=== PATIENT | female | born 1960 | race Caucasian/White ===

== ENCOUNTER → 2020-02-15 | Outpatient (CLI) | payer MEDICARE | END | disposition home or self-care (01) | LOC: CFH 14:13 | PROVIDERS: ATTEND Physician Assistant Surgical | DX: M47.12 Other spondylosis with myelopathy, cervical region (principal); M25.78 Osteophyte, vertebrae; M48.02 Spinal stenosis, cervical region | CPT/HCPCS: 72125 ==

== ENCOUNTER → 2020-02-23 | Outpatient (CLI) | payer MEDICARE ==
[~2020-02-23] MED LIST: ALBU8.5H8 INH; BACL-19 PO; BUPR300T94 PO; FLUO20CA23 PO; FLUT1DIS5 IH; GABA800T5 PO; LETR2.5T3 PO; TIZA2TAB4 PO
[2020-02-23 12:14] LABS: BASOPHILS % (AUTO) 1 % (0-1); EOSINOPHILS % (AUTO) 2 % (1-7); LYMPHOCYTES % (AUTO) 27 % (22-44); MEAN CORPUSCULAR HEMOGLOBIN 29.5 pg (27.0-34.8); MEAN CORPUSCULAR HGB CONC 33.1 g/dL (32.4-35.8); MEAN PLATELET VOLUME 8.2 fL (7.4-10.4); MONOCYTES % (AUTO) 9 % (2-9); NEUTROPHILS % (AUTO) 61 % (42-75); PLATELET COUNT 274 x10^3/uL (130-400); RED BLOOD COUNT 5.01 x10^6/uL (3.82-5.3); RED CELL DISTRIBUTION WIDTH 14.2 % (9.6-15.2)
[2020-02-23 12:20] LABS: MD NO
[2020-02-23 12:26] LABS: INTERNATIONAL NORMALIZED RATIO 0.99 (0.93-1.1); PROTHROMBIN TIME 10.2 Seconds (9.6-11.5)
[2020-02-23 12:30] LABS: ANION GAP 8 mmol/L (5-15); CALCIUM 9.1 mg/dL (8.5-10.1); CHLORIDE 109 mmol/L (98-107); CREATININE 1.04 mg/dL (0.55-1.02)
[2020-02-23 12:43] LABS: MICROSCOPIC INDICATED
== END | disposition home or self-care (01) ==
LOC: STAR 10:55
PROVIDERS: ATTEND Neurological Surgery
DX: Z01.818 Encounter for other preprocedural examination (principal); Z01.812 Encounter for preprocedural laboratory examination; Z01.811 Encounter for preprocedural respiratory examination; Z01.810 Encounter for preprocedural cardiovascular examination; M48.02 Spinal stenosis, cervical region; R79.1 Abnormal coagulation profile; R82.90 Unspecified abnormal findings in urine; R94.31 Abnormal electrocardiogram [ECG] [EKG]; I51.7 Cardiomegaly
CPT/HCPCS: 36415; 71046; 80048; 81001; 85025; 85610; 85730; 87086; 93005

== ENCOUNTER → 2020-02-28 | Outpatient (CLI) | payer MEDICARE | END | disposition home or self-care (01) | LOC: STAR 11:10 | PROVIDERS: ATTEND Anesthesiology | DX: Z01.812 Encounter for preprocedural laboratory examination (principal); Z20.828 Contact with and (suspected) exposure to other viral communicable diseases | CPT/HCPCS: 36415; 87635 ==

== ENCOUNTER 2020-03-03 07:06 | Inpatient (IN) | payer MEDICARE ==
[2020-03-02 13:30] LABS: MICROSCOPIC AUTO
[~2020-03-03] VITALS: Ht 162.6 cm; Wt 97.0 kg
[~2020-03-03 07:06] MED LIST changes: +BACITRACIN 50,000 UNIT ONE; +BUPIVACAINE/PF 0.5% ONE; +EPINEPHRINE 1 MG/ML, 1ML ONE
[2020-03-03] MEDS ORDERED: FENTANYL PF 250 MCG/5ML ONE (07:41)
[2020-03-03] MEDS ORDERED: MIDAZOLAM 1 MG/ML, 2ML ONE (07:41)
[2020-03-03] MEDS ORDERED: PROPOFOL 10 MG/ML, 20ML ONE (07:42)
[2020-03-03] MEDS ORDERED: ONDANSETRON 2MG/ML, 2ML ONE (07:42)
[2020-03-03] MEDS ORDERED: ROCURONIUM 10MG/ML,5ML ONE (07:42)
[2020-03-03] MEDS ORDERED: NEOSTIGMINE 1 MG/ML, 10ML ONE (07:42)
[2020-03-03] MEDS ORDERED: GLYCOPYRROLATE 0.2MG/1ML, 5ML ONE (07:42)
[2020-03-03] MEDS ORDERED: CEFAZOLIN 1,000 MG ONE (07:42)
[2020-03-03] MEDS ORDERED: DEXAMETHASONE 4 MG/ML, 1ML ONE (07:42)
[2020-03-03] MEDS ORDERED: PROPOFOL 100 ML ONE (07:42)
[2020-03-03] MEDS ORDERED: CHLORHEXIDINE 15 ML UDC MM STA (07:51)
[2020-03-03] MEDS ORDERED: CHLORHEXIDINE 15 ML UDC ONE (07:54)
[2020-03-03] MEDS ORDERED: LACTATED RINGERS 1,000 ML IV SCH (08:00)
[2020-03-03] MEDS ORDERED: FENTANYL PF 100 MCG/2ML ONE ×3 (09:27→11:37)
[2020-03-03] MEDS ORDERED: MEPERIDINE/PF 25MG/0.5ML IVPush PRN (09:30)
[2020-03-03] MEDS ORDERED: PROMETHAZINE 25 MG/ML, 1ML IVPush PRN (09:30)
[2020-03-03] MEDS ORDERED: HALOPERIDOL 5 MG/ML IV PRN (09:30)
[2020-03-03] MEDS ORDERED: ACETAMINOPHEN 325 MG TABLET PO PRN (09:30)
[2020-03-03] MEDS ORDERED: hydrALAzine 20 MG/ML, 1ML IV PRN (09:30)
[2020-03-03] MEDS ORDERED: HYDROmorphone 1 MG/ML, 1ML INJ IVPush PRN (09:30)
[2020-03-03] MEDS ORDERED: LABETALOL 5MG/ML, 20ML IV PRN ×2 (09:30→14:30)
[2020-03-03] MEDS ORDERED: morphine SULFATE 10 MG/ML, 1ML IVPush PRN (09:30)
[2020-03-03] MEDS ORDERED: OXYcodone 5 MG/5 ML ORAL.SOL UDC PO PRN (09:30)
[2020-03-03] MEDS: FENTANYL PF 100 MCG/2ML IV PRN ×3 (11:47→12:16)
[2020-03-03] MEDS ORDERED: METHOCARBAMOL 1,000 MG in DEXTROSE 5% 100 ML IV ONE (12:00)
[2020-03-03] MEDS ORDERED: OXYcodone 5 MG/5 ML ORAL.SOL UDC ONE (12:17)
[2020-03-03] MEDS ORDERED: ACETAMINOPHEN 650 MG/20.3 ML UDC ONE (12:17)
[2020-03-03] MEDS ORDERED: PROMETHAZINE 25 MG/ML, 1ML IM PRN (14:30)
[2020-03-03] MEDS ORDERED: DIPHENHYDRAMINE 25 MG CAPSULE PO PRN (14:30)
[2020-03-03] MEDS ORDERED: MAGNESIUM HYDROXIDE 8%, 30ML UDC PO PRN (14:30)
[2020-03-03] MEDS ORDERED: HYDROmorphone 2 MG/ML, 1ML IV PRN (14:30)
[2020-03-03] MEDS ORDERED: ONDANSETRON 2MG/ML, 2ML IV PRN (14:30)
[2020-03-03] MEDS ORDERED: BISACODYL 10 MG SUPP PR PRN (14:30)
[2020-03-03] MEDS ORDERED: PHARMACY MAY ADJ FOR RENAL FX MC PRN (15:00)
[2020-03-03] MEDS ORDERED: ALBUTEROL SULFATE 200 PUFFS/8.5 GR INH INH PRN (15:00)
[2020-03-03] MEDS ORDERED: HYDROcodone/APAP 10/325 MG TABLET PO PRN (15:00)
[2020-03-03] MEDS: OXYcodone IR 5MG TABLET PO PRN ×3 (16:14→23:16)
[2020-03-03] MEDS: GABAPENTIN 400 MG CAPSULE PO SCH ×2 (16:30→20:23)
[2020-03-03] MEDS: D5%-0.9% NACL+KCL 20MEQ 1,000 ML IV SCH (16:30)
[2020-03-03] MEDS: DEXAMETHASONE 4 MG/ML, 1ML IV SCH ×2 (16:31→23:12)
[2020-03-03] MEDS: CEFAZOLIN PMX 1GM/50ML 50 ML IVPB SCH (19:19)
[2020-03-03] MEDS: BACLOFEN 10 MG TABLET PO SCH (20:22)
[2020-03-03 20:38] VITALS: BP 124/75
[2020-03-04 01:13] VITALS: BP 119/74
[2020-03-04] MEDS: CEFAZOLIN PMX 1GM/50ML 50 ML IVPB SCH (02:49)
[2020-03-04] MEDS: OXYcodone IR 5MG TABLET PO PRN ×5 (02:54→21:13)
[2020-03-04] MEDS: D5%-0.9% NACL+KCL 20MEQ 1,000 ML IV SCH ×3 (04:51→15:37)
[2020-03-04] MEDS: DEXAMETHASONE 4 MG/ML, 1ML IV SCH (04:51)
[2020-03-04 05:35] VITALS: BP 101/61
[2020-03-04 06:34] VITALS: BP 117/69
[2020-03-04] MEDS: FLUTICASONE/VILANTEROL 200-25MCG/INH INH SCH (08:35)
[2020-03-04] MEDS: BUPROPION SR 150 MG TABLET PO SCH (08:59)
[2020-03-04] MEDS: GABAPENTIN 400 MG CAPSULE PO SCH ×3 (08:59→21:13)
[2020-03-04] MEDS: BACLOFEN 10 MG TABLET PO SCH ×2 (08:59→21:13)
[2020-03-04] MEDS: FLUOXETINE HCL 20 MG CAPSULE PO SCH (08:59)
[2020-03-04] MEDS: SENNA/DOCUSATE TABLET PO SCH (09:00)
[2020-03-04] MEDS ORDERED: TIZANIDINE 2MG TABLET PO SCH (09:00)
[2020-03-04] MEDS: LETROZOLE 2.5 MG TABLET PO SCH (09:01)
[2020-03-04 12:53] VITALS: BP 121/61
[2020-03-04 18:23] VITALS: BP 101/60
[2020-03-05 00:42] VITALS: BP 106/67
[2020-03-05] MEDS: OXYcodone IR 5MG TABLET PO PRN ×2 (03:26→07:03)
[2020-03-05] MEDS: D5%-0.9% NACL+KCL 20MEQ 1,000 ML IV SCH (05:51)
[2020-03-05 06:30] VITALS: BP 117/70
[2020-03-05] MEDS: SENNA/DOCUSATE TABLET PO SCH (08:41)
[2020-03-05] MEDS: FLUOXETINE HCL 20 MG CAPSULE PO SCH (08:42)
[2020-03-05] MEDS: GABAPENTIN 400 MG CAPSULE PO SCH (08:42)
[2020-03-05] MEDS: BUPROPION SR 150 MG TABLET PO SCH (08:42)
[2020-03-05] MEDS: BACLOFEN 10 MG TABLET PO SCH (08:42)
[2020-03-05] MEDS: LETROZOLE 2.5 MG TABLET PO SCH (08:43)
[2020-03-05] MEDS: FLUTICASONE/VILANTEROL 200-25MCG/INH INH SCH (08:46)
[2020-03-05] MEDS ORDERED: TIZA4CAP PO (08:51)
[2020-03-05] MEDS ORDERED: CEPH-368 PO (08:51)
[2020-03-05] MEDS ORDERED: OXYC5CAP2 PO (08:51)
== END 2020-03-05 11:04 | disposition home or self-care (01) | DRG 473 ==
LOC: ORIP 07:06 → 4NE 19:14 → DCLOUNGE 03-05 10:47
PROVIDERS: ADMIT Neurological Surgery; ATTEND Neurological Surgery
PROC: 0RG40A0 Fusion of Cervicothoracic Vertebral Joint with Interbody Fusion Device, Anterior Approach, Anterior Column, Open Approach (ICD-10-PCS; 2020-03-03)
PROC: 0RB50ZZ Excision of Cervicothoracic Vertebral Disc, Open Approach (ICD-10-PCS; 2020-03-03)
PROC: 01N10ZZ Release Cervical Nerve, Open Approach (ICD-10-PCS; 2020-03-03)
PROC: 4A11X4G Monitoring of Peripheral Nervous Electrical Activity, Intraoperative, External Approach (ICD-10-PCS; principal; 2020-03-03 09:30)
DX: M50.13 Cervical disc disorder with radiculopathy, cervicothoracic region (principal); M48.02 Spinal stenosis, cervical region
CPT/HCPCS: 72040; 81001; 87086; 94640; 95938; 95941; C1713; G0378; J0171; J0690; J1100; J2250; J2405; J2704; J2710; J3010; C1762; C1889; J2800; J3480; J7120

== ENCOUNTER → 2020-10-12 | Outpatient (CLI) | payer MEDICARE ==
[~2020-10-12] MED LIST changes: +AMOX-367 PO; -BACITRACIN 50,000 UNIT ONE; -BUPIVACAINE/PF 0.5% ONE; +CEPH-368 PO; -EPINEPHRINE 1 MG/ML, 1ML ONE; +OXYC5CAP2 PO; +OXYC5TAB98 PO; +TIZA-106 PO; -TIZA2TAB4 PO; +TIZA4CAP PO
== END | disposition home or self-care (01) ==
LOC: CFH 11:03
PROVIDERS: ATTEND Internal Medicine Hematology & Oncology
DX: M85.80 Other specified disorders of bone density and structure, unspecified site (principal); N95.9 Unspecified menopausal and perimenopausal disorder; Z85.3 Personal history of malignant neoplasm of breast
CPT/HCPCS: 77080